=== PATIENT | male | born 1990 | race Caucasian/White ===

== ENCOUNTER 2018-06-11 20:07 | Emergency (ER) | payer SELFPAY ==
--- NOTE | 2018-06-11 20:10 | NUR ---
PATIENT EXPRESSED WISH NOT TO BE TRIAGED AND DOES NOT WANT TO BE SEEN; ASKED X2 AND PATIENT REFUSED. PATIENT LEFT WITHOUT BEING SEEN BY DR. LAMB. NO FURTHER CARE PROVIDED FOR PATIENT
--- NOTE | 2018-06-11 20:30 | NUR ---
Jose Carlos kate in EDM - 06/11/18 at 2036 by [facility] PATIENT EXPRESSED WISH NOT TO BE TRIAGED AND DOES NOT WANT TO BE SEEN; ASKED X2 AND PATIENT REFUSED. PATIENT LEFT WITHOUT BEING SEEN BY DR. LAMB. NO FURTHER CARE PROVIDED FOR PATIENT.
== END 2018-06-11 20:10 | disposition left against medical advice (07) ==
LOC: MED 20:07
DX: Z53.21 Procedure and treatment not carried out due to patient leaving prior to being seen by health care provider (principal)

== ENCOUNTER 2019-04-19 00:23 | Emergency (ER) | payer OTHER ==
[~2019-04-19] VITALS: Ht 182.9 cm; Wt 68.9 kg
[2019-04-19 00:28] VITALS: BP 142/91
[2019-04-19] MEDS ORDERED: NEOMYCIN/POLYMYXIN/BACITRACIN 0.9 GM/1 PKT TP ONE (01:10)
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
--- NOTE | 2019-04-19 02:08 | NUR ---
Patient discharged with v/s stable. Written and verbal after care instructions given and explained. Patient alert, oriented and verbalized understanding of instructions. Ambulatory with steady gait. All questions addressed prior to discharge. ID band removed. Patient advised to follow up with PMD. Rx of MOTRIN 800MG AND BACTRIM 800MG-160MG given. Patient educated on indication of medication including possible reaction and side effects. Opportunity to ask questions provided and answered.
[2019-04-19 02:10] VITALS: BP 127/82
== END 2019-04-19 02:09 | disposition home or self-care (01) ==
LOC: MED 00:23
DX: L03.115 Cellulitis of right lower limb (principal)
CPT/HCPCS: 73590; 99283; Q0092